=== PATIENT | female | born 1950 | race Caucasian/White ===

== ENCOUNTER → 2017-12-18 09:32 | Outpatient (CLI) | payer MEDICARE, SELFPAY ==
--- NOTE | 2017-12-18 09:36 | US_ITS ---
STUDY: THYROID ULTRASOUND REASON FOR EXAM: Female, 67 years old. Nodules TECHNIQUE: Ultrasound evaluation of the thyroid was performed with real-time and static ruiz-scale imaging. COMPARISON: 12/12/2012 FINDINGS: RIGHT LOBE: The right lobe of the thyroid gland measures 4.3 x 1.4 x 1.4 cm. There is a heterogeneous echotexture. Multiple solid nodules again noted, largest measures 1.7 x 1.1 x 0.7 cm. Second largest measures 1.1 x 0.8 x 0.67 m. LEFT LOBE: The left lobe of the thyroid gland measures 4.0 x 1.4 x 1.4 cm. There is a heterogeneous echotexture. 2 separate solid nodules, larger measures 1.9 x 0.9 x 1.1 cm, smaller 0.6 x 0.5 x 0.5 cm. ISTHMUS: The isthmus measures 0.5 cm. The regional lymph nodes are normal. There has been previous thyroid biopsy in 2012. US/Thyroid IMPRESSION: Normal size heterogeneous thyroid gland with multiple stable solid nodules in both thyroid lobes. There has been previous thyroid biopsy in 2012. There is also been no significant interval change in appearance of the thyroid gland since 2012. Yearly follow-up recommended to assure stability. Electronically Signed: Nando Chapin MD at 8:31 EDT , Service support ,
== END ==
PROVIDERS: Visit Provider Internal Medicine
DX: E04.2 Nontoxic multinodular goiter (principal)
CPT/HCPCS: 76536

== ENCOUNTER 2019-09-21 16:12 | Emergency (ER) | payer MEDICARE, SELFPAY ==
[2019-09-21 16:13] VITALS: BP 164/75; PULSE 82; RESP 17; TEMP 37.1; O2SAT 97; BMI 31.1
--- NOTE | 2019-09-21 16:31 | ED.DCSUM_ITS ---
History of Present Illness Chief Complaint: Cough Informant: Patient Onset: Weeks - 1 week Context: Gradual Onset Current Severity: Mild Maximum Severity: Mild Narrative: Patient presents for one-week history of cough. She is not bringing up any sputum but states she feels like it is congested in her chest and up into her throat. She denies fever or chills. She denies chest pain. She is felt mildly short of breath. She denies history of COPD or asthma. She denies ill contacts. - Past Medical History (1) Hypothyroid Status: Chronic (2) Depression Status: Chronic Past Medical History - Allergies and Home Meds Allergies/Adverse Reactions: Allergies No Known Allergies Allergy (Verified 09/21/19 16:12) Primary Care Physician: Argentina Fragoso DO [Primary Care Provider] - 1 Week if not improving Prior records reviewed: Yes Smoking Status: Never smoker Review of Systems General: Denies: Chills, Fever Eyes: Denies: Visual changes - bilaterally ENT: Denies: Bilateral ear pain Cardiovascular: Denies: Chest pain Respiratory: Reports: Dyspnea, Cough. Denies: Sputum Gastrointestinal: Denies: Abdominal pain, Nausea, Vomiting, Diarrhea Skin: Denies: Rash Neurological: Denies: Headache Allergy: Denies: Uticaria Physical Exam Vital Signs/Narrative: Vital Signs Temp Pulse Resp BP Pulse Ox 09/21/19 16:13 98.8 F 82 17 164/75 H 97 Inital Vital Signs reviewed: Yes General: Well nourished, Well developed Head: Normocephalic, Atraumatic Eyes: Perrl, EOMI ENT: Moist mucous membranes, TM's clear Cardiovascular: Regular rate, Regular rhythm Respiratory: No distress, CTA bilaterally Abdomen: Soft, Nontender, Nondistended Extremities: Nontender Skin: Normal color, No rash Neurological: Alert, Oriented x3, Normal Strength, Normal Sensation Psychological: Normal affect Diagnostic/Tx/Re-eval Impressions Chest X-Ray 09/21/19 16:45 IMPRESSION: No acute cardiopulmonary process. Electronically Signed: Pavan Patton MD ([place]) at 17:00 EDT , Service support , 09/21/19 16:45 Chest PA and Lateral [RAD] Stat - Medical Decision Making Patient is had ongoing symptoms for the past week that have continued to worsen. Should be covered with Zithromax for bronchitis. She has not had fever or chills. I do not believe patient has coronavirus. She is given instructions to monitor her symptoms at home. ED Disposition - Plan for ED Patient: Disposition: Home or Assisted Living Diagnosis: Bronchitis Instructions: BRONCHITIS, Antiobiotic Treatment (Adult) Prescriptions: Azithromycin [Zithromax] 250 mg PO DAILY #4 tab Transmission Status: Received by [id number] Referrals: Argentina Fragoso DO [Primary Care Provider] - 1 Week if not improving
--- NOTE | 2019-09-21 16:45 | RAD_ITS ---
STUDY: X-RAY CHEST REASON FOR EXAM: Female, 68 years old. COUGH X 1 WEEK TECHNIQUE: PA and lateral views of the chest. COMPARISON: None. FINDINGS: The lungs are clear and expanded. There is pleural fibrotic thickening of the pulmonary lung apices. Normal size heart. Normal mediastinum and donnie. Normal visualized pulmonary arteries. Normal visualized aortic arch and descending thoracic aorta. Normal visualized thoracic spine. Normal visualized ribs, clavicles, and shoulders. There is no demonstrated abnormality of the visualized soft tissue structures of the upper abdomen. RAD/Chest PA and Lateral IMPRESSION: No acute cardiopulmonary process. Electronically Signed: Pavan Patton MD ([place]) at 17:00 EDT , Service support ,
[2019-09-21] MEDS: Azithromycin 250 MG Tablet 500 MG PO (18:53)
[2019-09-21 18:54] VITALS: RESP 16
== END 2019-09-21 18:54 | disposition home or self-care (01) ==
PROVIDERS: Emergency Provider Emergency Medicine; PCP Internal Medicine
DX: J40 Bronchitis, not specified as acute or chronic (principal); E03.9 Hypothyroidism, unspecified; F32.9 Major depressive disorder, single episode, unspecified; Z79.899 Other long term (current) drug therapy
CPT/HCPCS: 71046; 99283

== ENCOUNTER → 2024-12-08 | Outpatient (CLI) | payer MEDICARE, SELFPAY ==
--- NOTE | 2024-12-08 13:44 | US_ITS ---
PROCEDURE: HEAD/NECK SOFT TISSUE 12/08/2024 REASON FOR EXAM: Follow up TECHNIQUE: Ultrasound imaging of Head and Neck COMPARISON: 12/18/2017 FINDINGS: Right thyroid lobe measures 4.2 x 1.5 x 1.3 cm. Thyroid heterogenous hyperechoic nodule with perinodular vascularity measuring 1.3 x 0.9 x 0.7 cm is noted. Regressed as compared. Thyroid hyperechoic solid nodule measuring 0.4 x 0.4 x 0.4 cm noted. Stable Thyroid heterogenous Iso/hypo echoic nodule measuring 0.3 x 0.3 x 0.2 cm is noted. Stable Left thyroid lobe measures 4 x 1.6 x 1.5 cm. Thyroid solid isoechoic nodule measuring 1.6 x 1.2 x 1.4 cm, regressed as compared. Thyroid solid isoechoic nodule measuring 1.4 x 1.1 x 1 cm is noted, progressed as compared . Isthmus measures 4 mm. Hypoechoic solid nodule measuring 1.6 x 1.4 x 0.8 cm is noted. Possible parathyroid versus tissue inferior to the thyroid gland measuring 0.9 x 0.6 x 0.6 cm. Heterogenous thyroid gland. US/Head/Neck Soft Tissue IMPRESSION: Heterogenous thyroid gland, this could be seen with thyroiditis. Isthmus TR 4 nodule. FNA is advised. Progressed as compared. Bilateral thyroid lobes TR 3 nodules. Possible parathyroid versus tissue inferior to the thyroid gland New as ebrta diaz Reading Location: [place] [id number]
== END | disposition home or self-care (01) ==
LOC: US 13:44
PROVIDERS: PCP Internal Medicine; Referring Provider Internal Medicine; Visit Provider Internal Medicine
DX: E04.2 Nontoxic multinodular goiter (principal)
CPT/HCPCS: 76536

== ENCOUNTER 2025-02-10 08:30 | Outpatient (CLI) | payer MEDICARE, SELFPAY ==
--- NOTE | 2025-02-10 09:00 | FLU_PTH ---
PATIENT: HERMELINDA NORIEGA LOC: [facility]#:[id number] AGE/SX: 74/F ROOM: RE02/10/[address]: Dr. Teodoro Zhou MD : 1950 BED: DIS: 02/10/2025 SPEC #: [id number] RECD: 02/10/25 09:45 STATUS: EUGENIA TASHI #: [id number] BERTIN: 02/10/25 09:[address]: Teodoro Zhou DEPT: CYTOLOGY RECD BY: Prabhjot Rodriguez ENTERED: 02/10/25 13:14 SP TYPE: Fluid OTHR DR: Dr. Argentina Fragoso DO Tissues: A - Thyroid gland, NOS Procedures: Special Stain Group II Surgery Specimen Level IV Cytospin Fluid HEADER OPERATION: Fine needle aspiration of isthmic nodule and left thyroid nodule PRE-OP DIAGNOSIS: Isthmic nodule and left thyroid nodule TISSUE SUBMITTED: A- Isthmic nodule, B- Left thyroid nodule DIAGNOSIS CYTOLOGY A. Thyroid, isthmus, nodule, FNA (cytospin, smear x4): - Benign (TBS II) - see Comment. B. Thyroid, left, nodule, FNA (cytospin, smear x4): - Non-diagnostic (TBS 1). - Insufficient follicular cells - see Comment. COMMENT A, B) Selected slides/images were reviewed in intradepartmental consultation by Dr Bubba Anderson (head and neck pathology division, [facility]). CYTOLOGY STUDY Slides are reviewed. CYTOLOGY GROSS A. Received is 30 ml of pink-cloudy cytolyt with particles and 4 smears fluid labeled with the patient's name and and designated per the requisition as Isthmic nodule. Submitted for cytology and cytospin. B. Received is 30 ml of pink-cloudy cytolyt with particles and 4 smears fluid labeled with the patient's name and and designated per the requisition as Left thyroid nodule. Submitted for cytology and cytospin. mr 02/10/2025 CPT: 20398 x2
[2025-02-10 09:53] LABS: PTHIN 57 pg/mL (11-61)
[2025-02-10 10:07] LABS: Calcium 9.5 mg/dL (7.6-11.0); Free T3 6.1 pg/mL (2.18-3.98)
== END 2025-02-10 23:59 | disposition home or self-care (01) ==
PROVIDERS: PCP Internal Medicine; Referring Provider Surgery; Visit Provider Surgery
DX: D34 Benign neoplasm of thyroid gland (principal); E03.9 Hypothyroidism, unspecified
CPT/HCPCS: 36415; 82310; 83970; 84439; 84443; 84481; 88108; 88305; 88313

== ENCOUNTER → 2025-04-16 | Outpatient (CLI) | payer MEDICARE, SELFPAY ==
[2025-04-16 19:21] LABS: Cholesterol 145 mg/dL (<=200)
[2025-04-16 19:44] LABS: Free T3 4.3 pg/mL (2.18-3.98)
== END | disposition home or self-care (01) ==
LOC: MTLAB 13:45
PROVIDERS: Student in an Organized Health Care Education/Training Program; PCP Internal Medicine; Referring Provider Internal Medicine; Visit Provider Internal Medicine
DX: R94.6 Abnormal results of thyroid function studies (principal); R79.89 Other specified abnormal findings of blood chemistry
CPT/HCPCS: 36415; 82465; 83036; 84439; 84443; 84481

== ENCOUNTER → 2025-06-29 | Outpatient (CLI) | payer MEDICARE, SELFPAY ==
[2025-06-29 08:25] LABS: Mucous, Urine 0 SEEN /hpf (<or=2+); Red Blood Cells-Urine 0 SEEN /hpf (0-5); Squamous Epithelial Cells - UA 0 SEEN /hpf (5-10)
[2025-06-29 10:13] LABS: Hematocrit 38.4 % (37-47); Hemoglobin 12.8 g/dL (12.0-15.0); Immature Granulocytes Count 0.010 X10^3/uL (0.0-0.0); Mean Corp Hgb Conc 33.3 g/dL (32-36); Mean Corpuscular Volume 96.7 fL (81-99); Mean Platelet Vol. 9.7 fl (6.2-12.0); NRBC Flagged by Analyzer 0 % (0-5); Platelet Count 211 K/mm3 (150-450); RBC Distribution Width CV 12.5 % (11.6-14.6); RBC Distribution Width SD 44.8 fl (35.1-43.9); Red Blood Count 3.97 M/mm3 (4.2-5.4); White Blood Count 4.7 K/mm3 (4.4-11.0)
[2025-06-29 10:32] LABS: Creatinine, Urine (random) 46.00 mg/dL (28.00-217.00); Microalbumin,Random Urine 16.6 mg/L (<20 mg/L)
[2025-06-29 10:42] LABS: Color, Urine Yellow (Yellow); Glucose, Dipstick Normal (Normal); Ketone-Dipstick Negative (Negative); Leukocyte Esterase-Dipstick Negative /ul (Negative); Nitrite-Dipstick Negative (Negative); Occult Blood-Urine Negative /ul (Negative); Protein-Dipstick 15 mg/dl (Negative); Specific Gravity, Urine 1.010 (1.002-1.030); Urine Bilirubin Dipstick Negative (Negative)
[2025-06-29 10:58] LABS: Cholesterol 137 mg/dL (<=200); Free T3 6.8 pg/mL (2.18-3.98); Low Density Lipoprotein Calc. 73 mg/dL; Triglycerides 159 mg/dL; Very Low Density Lipoprotein 32 mg/dL (5-40); Vitamin D,25 Hydroxy 33.3 ng/mL (30-100); cholesterol:hdl ratio screen 3.76
[2025-06-29 10:59] LABS: AST(SGOT) 33 U/L (<=31); Alanine Aminotransfer ALT/SGPT 36 U/L (<=34); Albumin, Serum 4.5 g/dL (3.4-4.8); Alkaline Phosphatase 91 U/L (35-104); Anion Gap 11 (5-15); BUN 10 mg/dL (4-19); BUN/Creat Ratio 13.8 RATIO (10-20); Calcium,Total 9.8 mg/dL (7.6-11.0); Carbon Dioxide 26.1 mmol/L (21.0-32.0); Chloride 102 mmol/L (98-108); Globulin 2.6 g/dL (2.2-4.2); Glucose 97 mg/dL (70-99); Potassium 4.3 mmol/L (3.3-5.1)
== END | disposition home or self-care (01) ==
LOC: LAB 08:18
PROVIDERS: PCP Internal Medicine; Referring Provider Internal Medicine; Visit Provider Internal Medicine
DX: R94.6 Abnormal results of thyroid function studies (principal); R79.89 Other specified abnormal findings of blood chemistry; R73.09 Other abnormal glucose; E55.9 Vitamin D deficiency, unspecified
CPT/HCPCS: 36415; 80053; 80061; 81001; 82043; 82306; 82570; 83036; 84439; 84443; 84481; 85025